=== PATIENT | female | born 1970 | race Hispanic/Latino ===

== ENCOUNTER 2022-08-31 07:29 | Inpatient (IN) | payer BC ==
[2022-08-31] MEDS ORDERED: Metoclopramide HCl 10 MG/2 ML VIAL ONE (07:48)
[2022-08-31] MEDS ORDERED: diphenhydrAMINE 50 MG/ML VIAL ONE (07:48)
[2022-08-31 08:03] LABS: #Eosinphils 0.1 thou/uL (0.0-0.7); #Lymphocytes 1.7 thou/uL (1.20-3.40); #Monocytes 0.3 thou/uL (0.11-0.59); #Neutrophils 4.4 thou/uL (1.40-6.50); %Basophils 0.6 % (0.0-1.0); %Eosinophils 0.8 % (0.0-10.0); %Lymphocytes 26.3 % (21.0-51.0); %Monocytes 3.8 % (0.0-10.0); %Neutrophils 68.5 % (42.0-75.0); Hemoglobin 12.7 g/dL (12.0-16.0); Mean Corpuscular HGB CONC 33.3 g/dL (32.0-36.0); Mean Platelet Volume 12.4 fL (7.4-10.4); Platelet Count 224 10x3/uL (130-400); Red Blood Cell (RBC) Count 6.07 mill/uL (4.20-5.40); Reflex for Review?? YES; White Blood Cell (WBC) Count 6.5 10x3/uL (4.8-10.8)
[2022-08-31 08:18] LABS: ALT (SGPT) 13 U/L (8-55); AST (SGOT) 16 U/L (5-34); Albumin 4.5 g/dL (3.5-5.0); Alkaline Phosphatase 80 U/L (40-110); Anion Gap 13 mmol/L (10-20); BUN (Urea Nitrogen) 11 mg/dL (9.8-20.1); Bilirubin, Total 1.7 mg/dL (0.2-1.2); Calc. Creatinine Clearance 0 mL/min (70-130); Carbon Dioxide 28 mmol/L (22-29); Chloride 104 mmol/L (98-107); Estimated GFR 92; Globulin 3.6 g/dL (2.4-3.5); Glucose 113 mg/dL (70-105); Potassium 4.1 mmol/L (3.5-5.1); Protein, Total 8.1 g/dL (6.0-8.3); Sodium 141 mmol/L (136-145)
[2022-08-31 08:27] LABS: Hypochromia SLIGHT = 6-15 cells (100X) (0-5/hpf); MDiff Complete? YES; Microcytosis MODERATE=15-30 cells (100X) (0-5/hpf); Ovalocytes SLIGHT = 2-5 cells (100X) (0-1/hpf); Platelet Morphology Comment Appears Adequate; Polychromasia MODERATE = 3-4 cells (100X) (0-2/hpf)
[2022-08-31] MEDS ORDERED: Diazepam 10 MG/2 ML SYRINGE ONE (10:57)
[2022-08-31] MEDS ORDERED: Aspirin 81 mg Enteric Coated Tablet PO SCH (12:15)
[2022-08-31] MEDS ORDERED: Aspirin Chewable 81 MG TAB ONE (13:28)
[2022-08-31] MEDS: Sodium Chloride 0.9% 1,000 ML IV SCH (14:47)
[2022-08-31 16:56] LABS: SARS-CoV-2 NAA Rapid Test Not Detected (NotDetected)
[2022-08-31 16:57] VITALS: BMI 23.0
[2022-08-31] MEDS ORDERED: Ondansetron ODT 4 MG TAB PO PRN (19:23)
[2022-08-31] MEDS ORDERED: Ondansetron PF 4 MG/2 ML Vial IVP PRN (20:00)
[2022-08-31] MEDS: Meclizine HCl 25 MG TAB PO PRN (20:37)
[2022-09-01] MEDS ORDERED: Acetaminophen 325 MG TAB PO PRN (00:19)
[2022-09-01] MEDS ORDERED: Acetaminophen 500 MG TAB PO SCH (00:30)
[2022-09-01] MEDS: Sodium Chloride 0.9% 1,000 ML IV SCH (08:53)
[2022-09-01] MEDS: Aspirin 81 mg Enteric Coated Tablet PO SCH (08:53)
[2022-09-01] MEDS: Losartan 25 MG TAB PO SCH ×2 (08:54→20:39)
[2022-09-01] MEDS: Meclizine HCl 25 MG TAB PO PRN (08:57)
[2022-09-01] MEDS ORDERED: Non-Formulary Item 1 EACH (Losartan Potassium [Losartan Potassium] 50 MG Tablet) PO SCH (09:00)
[2022-09-01] MEDS ORDERED: Estradiol 1 MG TAB PO SCH (16:00)
[2022-09-01] MEDS ORDERED: Metoclopramide HCl 10 MG/2 ML VIAL IVP SCH (17:00)
[2022-09-01] MEDS ORDERED: diphenhydrAMINE 25 MG in Sodium Chloride 0.9% 50 ML IVPB SCH (17:00)
[2022-09-01] MEDS ORDERED: Amlodipine 10 MG TAB PO SCH (17:00)
[2022-09-01] MEDS: Acetaminophen 325 MG TAB PO SCH ×2 (18:25→21:17)
[2022-09-02] MEDS: Acetaminophen 325 MG TAB PO SCH ×8 (01:52→23:30)
[2022-09-02 05:31] LABS: Anion Gap 11 mmol/L (10-20); BUN (Urea Nitrogen) 10 mg/dL (9.8-20.1); Calc. Creatinine Clearance 87 mL/min (70-130); Calcium 8.8 mg/dL (7.8-10.44); Carbon Dioxide 26 mmol/L (22-29); Chloride 106 mmol/L (98-107); Estimated GFR 101; Glucose 89 mg/dL (70-105); Magnesium 2.1 mg/dL (1.6-2.6); Potassium 3.7 mmol/L (3.5-5.1); Sodium 139 mmol/L (136-145)
[2022-09-02] MEDS: Sodium Chloride 0.9% 1,000 ML IV SCH (05:56)
[2022-09-02] MEDS: Estradiol 1 MG TAB PO SCH (09:00)
[2022-09-02] MEDS: Aspirin 81 mg Enteric Coated Tablet PO SCH (09:00)
[2022-09-02] MEDS: Losartan 25 MG TAB PO SCH ×2 (09:00→20:10)
[2022-09-02] MEDS ORDERED: Amlodipine 10 MG TAB PO SCH (09:00)
[2022-09-02] MEDS: Ketorolac Tromethamine 30 MG/ML VIAL IVP SCH ×2 (12:00→18:40)
[2022-09-02] MEDS ORDERED: Estradiol 1 MG TAB PO SCH (21:45)
[2022-09-03 06:10] LABS: Anion Gap 10 mmol/L (10-20); BUN (Urea Nitrogen) 11 mg/dL (9.8-20.1); Calc. Creatinine Clearance 79 mL/min (70-130); Calcium 8.9 mg/dL (7.8-10.44); Carbon Dioxide 28 mmol/L (22-29); Chloride 106 mmol/L (98-107); Estimated GFR 90; Glucose 90 mg/dL (70-105); Potassium 3.8 mmol/L (3.5-5.1); Sodium 140 mmol/L (136-145)
[2022-09-03] MEDS: Acetaminophen 325 MG TAB PO SCH ×3 (07:38→12:50)
[2022-09-03] MEDS: Estradiol 1 MG TAB PO SCH (08:21)
[2022-09-03] MEDS: Losartan 25 MG TAB PO SCH (08:22)
[2022-09-03] MEDS ORDERED: Amlodipine 5 MG TAB PO SCH (09:00)
[2022-09-03 11:51] VITALS: BP 128/81; TEMP 97.8
== END 2022-09-03 14:10 | disposition home or self-care (01) | DRG 149 ==
LOC: ERS 07:29 → ERHOLD 11:51 → NEURO 16:17 → OBSVTOIN 09-02 12:20
PROVIDERS: ADMIT Internal Medicine; ATTEND Internal Medicine
DX: H81.11 Benign paroxysmal vertigo, right ear (principal); G43.909 Migraine, unspecified, not intractable, without status migrainosus; Z20.822 Contact with and (suspected) exposure to COVID-19; I10 Essential (primary) hypertension; G93.89 Other specified disorders of brain; Z88.2 Allergy status to sulfonamides; Z79.899 Other long term (current) drug therapy; Z79.82 Long term (current) use of aspirin
CPT/HCPCS: 36415; 70450; 70551; 76770; 80048; 80053; 80061; 82607; 83735; 84443; 84484; 85025; 85060; 93005; 93306; 93880; 93975; 95712; 95819; 95957; 96365; 96375; 96376; G0378; J1200; J2405; J2765; J3360; J7050; U0002